=== PATIENT | female | born 1960 ===

== ENCOUNTER 2018-08-11 15:14 | Outpatient (CLI) | payer OTHER ==
[~2018-08-11] VITALS: Ht 147.3 cm; Wt 61.2 kg
== END 2018-08-11 15:30 | disposition home or self-care (01) ==
LOC: OFIC 805 15:14
DX: J35.01 Chronic tonsillitis (principal); K21.0 Gastro-esophageal reflux disease with esophagitis; R09.81 Nasal congestion

== ENCOUNTER 2019-02-12 15:44 | Outpatient (CLI) | payer OTHER ==
[~2019-02-12] VITALS: Ht 121.9 cm; Wt 61.2 kg
== END 2019-02-12 16:00 | disposition home or self-care (01) ==
LOC: OFIC 805 15:44
DX: H90.3 Sensorineural hearing loss, bilateral (principal); H93.13 Tinnitus, bilateral